=== PATIENT | female | born 1980 | race Caucasian/White ===

== ENCOUNTER 2017-05-21 19:07 | Emergency (ER) | payer OTHER ==
[~2017-05-21] VITALS: Ht 160 cm; Wt 71.1 kg
[~2017-05-21 19:07] MED LIST: Flagyl PO; Motrin PO; NOHOMEMEDS; PRENATAL1 EACH PO; Pepcid PO
[2017-05-21] MEDS ORDERED: NAPROSYN500 MG PO (21:21)
[2017-05-21] MEDS ORDERED: TRAMADOL HCL50 MG PO (21:21)
[2017-05-21] MEDS ORDERED: SKELAXIN800 MG PO (21:25)
[2017-05-21 21:43] VITALS: BP 116/79
== END 2017-05-21 21:44 | disposition home or self-care (01) ==
LOC: EME 19:07
DX: M25.511 Pain in right shoulder (principal); G89.29 Other chronic pain; Z88.1 Allergy status to other antibiotic agents
CPT/HCPCS: 73030; 99281; 99284; J1885

== ENCOUNTER 2017-07-23 13:13 | Emergency (ER) | payer OTHER ==
[~2017-07-23] VITALS: Ht 160 cm; Wt 70.0 kg
[~2017-07-23 13:13] MED LIST changes: +NAPROSYN500 MG PO; +SKELAXIN800 MG PO; +TRAMADOL HCL50 MG PO
[2017-07-23 14:07] LABS: HEMATOCRIT 40.9 % (36.0-46.0); HEMOGLOBIN 13.9 G/DL (11.9-15.5); MCH 31.7 PG (29.0-34.0); MCV 93.4 FL (83-99); PLATELET COUNT 293 K/uL (156-360); RBC DIS.WIDTH-CV 13.2 % (11.8-14.6); RBC DIS.WIDTH-SD 45.3 % (39-53); RED BLOOD COUNT 4.38 M/uL (3.80-5.20); WHITE BLOOD COUNT 6.4 K/uL (4.1-10.2)
[2017-07-23 14:15] LABS: ALBUMIN 4.2 g/dL (3.2-4.8); CHLORIDE 108 mEq/L (99-109); POTASSIUM 4.3 mEq/L (3.7-5.4); SODIUM 141 mEq/L (136-147)
[2017-07-23 14:17] LABS: GLUCOSE 90 mg/dL (70-99); TOTAL PROTEIN 6.9 g/dL (6.4-8.3)
[2017-07-23 14:19] LABS: TOTAL BILIRUBIN 0.3 mg/dL (0.0-1.0)
[2017-07-23 14:21] LABS: ALKALINE PHOSPHATASE 62 IU/L (3-129); CREATININE 0.8 mg/dL (0.6-1.3); GFR ESTIMATE (CALCULATED) > 59 mL/min/
[2017-07-23 14:22] LABS: AST (GOT) 16 IU/L (2-34); UREA NITROGEN (BUN) 15 mg/dL (9-23)
[2017-07-23 14:24] LABS: ALT (GPT) 11 IU/L (3-49)
[2017-07-23 14:29] LABS: QUANTITATIVE HCG < 4.0 MIU/ML
[2017-07-23 15:12] LABS: APPEARANCE CLEAR ((CLEAR)); BILIRUBIN NEGATIVE; BLOOD SMALL; COLOR STRAW ((YELLOW)); GLUCOSE (STRIP) NEGATIVE; KETONES NEGATIVE; LEUKOCYTES NEGATIVE; NITRITE NEGATIVE; PROTEIN (STRIP) NEGATIVE; SPECIFIC GRAVITY 1.017 (1.000-1.030); UROBILINOGEN 0.2 MG/DL (0.2-1.0)
[2017-07-23 15:14] LABS: BACTERIA NONE SEEN /HPF; EPITHELIAL CELLS RARE /HPF; MUCUS NONE SEEN /LPF; RED BLOOD CELLS 0-5 /HPF (0-5); UCUL ADDED? NO; WHITE BLOOD CELLS NONE SEEN /HPF (0-5)
[2017-07-23 16:21] VITALS: BP 139/73
== END 2017-07-23 16:22 | disposition left against medical advice (07) ==
LOC: EME 13:13
DX: N93.9 Abnormal uterine and vaginal bleeding, unspecified (principal); F17.200 Nicotine dependence, unspecified, uncomplicated; Z88.0 Allergy status to penicillin
CPT/HCPCS: 80053; 81003; 84702; 85027; 99281; 99284

== ENCOUNTER 2017-12-12 19:29 | Emergency (ER) | payer OTHER ==
[~2017-12-12] VITALS: Ht 160 cm; Wt 72.7 kg
[2017-12-12 20:39] LABS: APPEARANCE CLEAR ((CLEAR)); BILIRUBIN NEGATIVE; BLOOD NEGATIVE; COLOR YELLOW ((YELLOW)); GLUCOSE (STRIP) NEGATIVE; KETONES NEGATIVE; LEUKOCYTES NEGATIVE; NITRITE NEGATIVE; PROTEIN (STRIP) NEGATIVE; SPECIFIC GRAVITY 1.025 (1.000-1.030); UCUL ADDED? NO
[2017-12-12 21:05] VITALS: BP 110/63
== END 2017-12-12 21:05 | disposition home or self-care (01) ==
LOC: EME 19:29 → RME 19:29
PROVIDERS: Physician Assistant Medical
DX: Z32.02 Encounter for pregnancy test, result negative (principal); R35.0 Frequency of micturition; F17.200 Nicotine dependence, unspecified, uncomplicated
CPT/HCPCS: 81003; 84702; 99281; 99284

== ENCOUNTER 2017-12-18 19:17 | Emergency (ER) | payer OTHER ==
[~2017-12-18] VITALS: Ht 160 cm; Wt 73.7 kg
[2017-12-18] MEDS ORDERED: FLEXERIL10 MG PO (21:01)
[2017-12-18] MEDS ORDERED: NORCO 5/3251 TABLET PO (21:01)
[2017-12-18 21:30] VITALS: BP 116/64
== END 2017-12-18 21:34 | disposition home or self-care (01) ==
LOC: EXP 19:17 → EME 19:17 → EXP 21:34
DX: Z04.1 Encounter for examination and observation following transport accident (principal); M43.16 Spondylolisthesis, lumbar region; M43.06 Spondylolysis, lumbar region; Z87.39 Personal history of other diseases of the musculoskeletal system and connective tissue; Z88.0 Allergy status to penicillin
CPT/HCPCS: 72100; 99281; 99284

== ENCOUNTER 2018-02-14 23:14 | Emergency (ER) | payer OTHER ==
[~2018-02-14] VITALS: Ht 160 cm; Wt 70.8 kg
[~2018-02-14 23:14] MED LIST changes: +FLEXERIL10 MG PO; +NORCO 5/3251 TABLET PO
[2018-02-15 01:01] LABS: HEMATOCRIT 36.1 % (36.0-46.0); HEMOGLOBIN 12.1 G/DL (11.9-15.5); MCH 31.1 PG (29.0-34.0); MCHC 33.5 G/DL (30.0-36.0); MCV 92.8 FL (83-99); PLATELET COUNT 282 K/uL (156-360); RBC DIS.WIDTH-SD 41.1 % (39-53); RED BLOOD COUNT 3.89 M/uL (3.80-5.20); WHITE BLOOD COUNT 4.9 K/uL (4.1-10.2)
[2018-02-15 01:06] LABS: APPEARANCE CLOUDY ((CLEAR)); BILIRUBIN NEGATIVE; BLOOD MODERATE; COLOR YELLOW ((YELLOW)); GLUCOSE (STRIP) NEGATIVE; KETONES NEGATIVE; LEUKOCYTES NEGATIVE; NITRITE NEGATIVE; PROTEIN (STRIP) NEGATIVE; SPECIFIC GRAVITY 1.017 (1.000-1.030); UROBILINOGEN 0.2 MG/DL (0.2-1.0)
[2018-02-15 01:12] LABS: ALBUMIN 3.5 g/dL (3.2-4.8); CHLORIDE 104 mEq/L (99-109); POTASSIUM 4.1 mEq/L (3.7-5.4); SODIUM 138 mEq/L (136-147)
[2018-02-15 01:14] LABS: GLUCOSE 102 mg/dL (70-99); TOTAL PROTEIN 5.9 g/dL (6.4-8.3)
[2018-02-15 01:16] LABS: TOTAL BILIRUBIN 0.2 mg/dL (0.0-1.0)
[2018-02-15 01:18] LABS: ALKALINE PHOSPHATASE 48 IU/L (3-129); CREATININE 0.7 mg/dL (0.6-1.3); GFR ESTIMATE (CALCULATED) > 59 mL/min/
[2018-02-15 01:19] LABS: AST (GOT) 17 IU/L (2-34); UREA NITROGEN (BUN) 9 mg/dL (9-23)
[2018-02-15 01:21] LABS: AMORPHOUS PHOSPHATE CRYSTALS 3+; BACTERIA 2+ /HPF; EPITHELIAL CELLS RARE /HPF; MUCUS NONE SEEN /LPF; RED BLOOD CELLS 0-5 /HPF (0-5); UCUL ADDED? YES; WHITE BLOOD CELLS NONE SEEN /HPF (0-5)
[2018-02-15 01:21] LABS: ALT (GPT) 11 IU/L (3-49)
[2018-02-15] MEDS ORDERED: MOTRIN800 MG PO (02:15)
[2018-02-15 02:23] VITALS: BP 106/61
== END 2018-02-15 02:24 | disposition home or self-care (01) ==
LOC: EME 23:14
PROVIDERS: Physician Assistant
DX: G89.29 Other chronic pain (principal); M79.642 Pain in left hand; M79.641 Pain in right hand; Z88.0 Allergy status to penicillin
CPT/HCPCS: 80053; 81003; 82306; 82607; 85027; 87086; 99281; 99284